=== PATIENT | male | born 1950 | race Caucasian/White ===

== ENCOUNTER 2025-01-09 10:34 | Outpatient (RCR) | payer MEDICARE, OTHER, SELFPAY ==
[2024-12-30 09:32] LABS: Glucose - Point of Care 181 mg/dl (70-99)
[2024-12-30 10:18] LABS: Glucose - Point of Care 146 mg/dl (70-99)
[2024-12-31 08:10] LABS: Glucose - Point of Care 145 mg/dl (70-99)
[2024-12-31 09:05] LABS: Glucose - Point of Care 164 mg/dl (70-99)
[2025-01-02 08:08] LABS: Glucose - Point of Care 173 mg/dl (70-99)
[2025-01-02 08:59] LABS: Glucose - Point of Care 131 mg/dl (70-99)
[2025-01-05 08:25] LABS: Glucose - Point of Care 156 mg/dl (70-99)
[2025-01-05 09:21] LABS: Glucose - Point of Care 103 mg/dl (70-99)
[2025-01-07 08:08] LABS: Glucose - Point of Care 141 mg/dl (70-99)
[2025-01-07 09:05] LABS: Glucose - Point of Care 166 mg/dl (70-99)
[2025-01-09 08:04] LABS: Glucose - Point of Care 175 mg/dl (70-99)
[2025-01-09 08:56] LABS: Glucose - Point of Care 127 mg/dl (70-99)
== END 2025-01-09 23:59 | disposition home or self-care (01) ==
LOC: CRHB 10:34
PROVIDERS: ATTENDING PHYSICIAN Internal Medicine Cardiovascular Disease
DX: I25.10 Atherosclerotic heart disease of native coronary artery without angina pectoris (principal); Z95.5 Presence of coronary angioplasty implant and graft
CPT/HCPCS: 82962; G0422; G0423

== ENCOUNTER 2025-02-04 08:47 | Outpatient (RCR) | payer MEDICARE, OTHER, SELFPAY | END 2025-02-04 23:59 | disposition home or self-care (01) | LOC: CRHB 08:47 | PROVIDERS: ATTENDING PHYSICIAN Internal Medicine Cardiovascular Disease; FAMILY PHYSICIAN Family Medicine | DX: I25.10 Atherosclerotic heart disease of native coronary artery without angina pectoris (principal); Z95.5 Presence of coronary angioplasty implant and graft | CPT/HCPCS: G0422; G0423 ==

== ENCOUNTER 2025-03-11 08:51 | Outpatient (RCR) | payer MEDICARE, OTHER, SELFPAY | END 2025-03-11 23:59 | disposition home or self-care (01) | LOC: CRHB 08:51 | PROVIDERS: ATTENDING PHYSICIAN Internal Medicine Cardiovascular Disease; FAMILY PHYSICIAN Family Medicine | DX: I25.10 Atherosclerotic heart disease of native coronary artery without angina pectoris (principal); Z95.5 Presence of coronary angioplasty implant and graft | CPT/HCPCS: G0422; G0423 ==